=== PATIENT | male | born 1965 | race African-American/Black ===

== ENCOUNTER 2017-04-10 06:30 | Day surgery (SDC) | payer BC ==
[2017-04-06 14:06] VITALS: BMI 24.0
[2017-04-10] MEDS ORDERED: EPINEPHrine 1:1,000 1 MG/1 ML - 30ML VIAL (INJECTION) ONE (07:54)
[2017-04-10] MEDS ORDERED: BUPIVACAINE HCL/PF 2.5 MG/ML - 30 ML VIAL IJ ONE (07:54)
[2017-04-10] MEDS ORDERED: KETOROLAC TROMETHAMINE 30 MG/1 ML VIAL ONE (07:57)
[2017-04-10] MEDS ORDERED: DEXAMETHASONE SOD PHOSPHATE 4 MG/1 ML VIAL ONE (07:57)
[2017-04-10] MEDS ORDERED: LIDOCAINE HCL/PF 2% SDV 5ML VIAL ONE (07:57)
[2017-04-10] MEDS ORDERED: ONDANSETRON 4 MG/2 ML VIAL ONE (07:57)
[2017-04-10] MEDS ORDERED: PROPOFOL 20 ML ONE (07:57)
[2017-04-10] MEDS ORDERED: SODIUM CHLORIDE 0.9% P/F 10 ML VIAL IJ ONE (07:58)
[2017-04-10] MEDS ORDERED: ceFAZolin SODIUM 1 GM VIAL ONE (07:58)
[2017-04-10] MEDS ORDERED: oxyCODONE HCL 5 MG TABLET PO PRN (08:37)
[2017-04-10] MEDS ORDERED: ONDANSETRON 4 MG/2 ML VIAL IVPUSH PRN (08:37)
[2017-04-10] MEDS ORDERED: LACTATED RINGERS SOLUTION 1,000 ML IV SCH (08:45)
[2017-04-10] MEDS ORDERED: MIDAZOLAM HCL 2 MG/2 ML SINGLE DOSE VIAL ONE (08:48)
[2017-04-10] MEDS ORDERED: ePHEDrine SULFATE 50 MG/1 ML AMPULE ONE (09:08)
[2017-04-10 11:54] VITALS: TEMP 97.5
[2017-04-10 11:56] VITALS: BP 114/83; PULSE 64
--- NOTE | 2017-04-12 21:09 | OP ---
DATE OF OPERATION: 04/10/2017 SURGEON: Khalif Dowling MD STACK MATCHER: KIP Bird PREOPERATIVE DIAGNOSES: 1. Right knee medial and lateral meniscal tear. 2. Right knee cartilage injury. 3. Right knee synovitis. POSTOPERATIVE DIAGNOSES: 1. Right knee medial and lateral meniscal tear. 2. Right knee cartilage injury. 3. Right knee synovitis. POCEDURE: 1. Right knee arthroscopy with partial meniscectomy, medial and lateral meniscus. 2. Right knee arthroscopy with chondroplasty and abrasion-plasty. 3. Right knee arthroscopy with synovectomy, major. CPT CODES: 93332, [id number], 33631. FINDINGS: 1. Medial meniscus posterior horn tear, minor. 2. Lateral meniscus anterior horn tear and body anterior one-third. 3. Synovitis, patellofemoral, medial and lateral notch area. 4. Central grade 3 cartilage injury, medial femoral condyle, and grade 2 to 3 changes, medial tibial plateau. 5. ACL and PCL intact. 6. Central grade 4 cartilage injury, lateral femoral condyle posterior femoral condyle. 7. Central grade 2 to 3 cartilage injury, patellofemoral trochlea, and anterior grade 4 changes, patellofemoral trochlea. 8. Large ganglion cyst, posterior portion. PROCEDURE: Informed consent was obtained. The patient came to the operating room, where the lower extremity was prepped and draped in a sterile fashion. A tourniquet was placed on the upper thigh, but not inflated. Using standard arthroscopic technique, a lateral incision and portal was made to allow for introduction of the camera into the suprapatellar bursa. This was then taken to the medial joint line, where under direct visualization, a medial incision and portal was made. Excessive synovium noted in the medial, lateral and patellofemoral and notch area was removed by an upbiter, shaver and Bovie cautery. This was found to bring in inflammatory tissue into the joint surface, a source of pain and dysfunction. Probing of the medial and lateral meniscus found tears, as described in the findings. These were removed with the upbiter and shaver and taken back to a stable rim. Grade 2 to 3 degenerative changes were treated with a chondroplasty, removing all flaking surfaces with low-setting Bovie along the periphery to prevent further flaking. Grade 4 changes, as noted, were treated with an abrasoplasty, creating a bleeding surface at the bone/cartilage interface. Aggressive debridement with shaver/ann marie created bleeding surface. Micro fracture also done when indicated in findings All areas of the knee were once again reexamined. The knee was then drained and a single suture was placed in all portals. A sterile dressing was placed and the patient was transferred to the recovery room without complication. ADDENDUM: The area of the ganglion cyst was identified. After debridement and removal of the damaged cartilage and meniscal tears, an incision was made approximately 4 cm in length in the central portion of the posterior ganglion. This was taken down, where a 22 needle was placed into the ganglion cyst to confirm no arterial connection. An incision was made into the ganglion cyst and a hemostat was used to spread open up all septa of the ganglion cyst. This was then irrigated with copious amounts of irrigation and debrided soft tissue. The central thickened fluid of the ganglion cyst was completely debrided. This was then closed with 2-0 Vicryl and 3-0 nylon. Sterile dressing was placed. Patient transferred to recovery without complication. KHALIF DOWLING M.D. [id number]
--- NOTE | 2017-04-14 15:01 | PATH ---
Surgical Pathology Report Patient Name: SMITHA PATRICIO [facility]. Rec. #: [id number] /Age/Gender: 1965 (Age: 51) / M Account: [id number] Location: [facility] Taken: 04/10/2017 Received: 04/10/2017 Reported: 04/14/2017 Physicians: Khalif Uribe M.D. Specimen(s) Received RIGHT KNEE SHAVINGS Clinical History Derangement of right knee, Moore's cyst Final Diagnosis KNEE, RIGHT, ARTHROSCOPIC SHAVINGS: FRAGMENTS OF CARTILAGE, FIBROCOLLAGENOUS TISSUE AND SCANT BONE. Electronically Signed Gabby Zaragoza M.D. Gross Description Received in formalin, labeled "right knee shavings," is a 4.5 x 3.5 x 0.3 cm. aggregate of zuleta-yellow soft tissue fragments. A metals sales representative portion is submitted in one cassette. /04/13/201704/13/2017
== END 2017-04-10 11:45 | disposition home or self-care (01) ==
LOC: FASU 06:30
PROVIDERS: ATTEND Orthopaedic Surgery
PROC: 0SBC4ZZ Excision of Right Knee Joint, Percutaneous Endoscopic Approach (ICD-10-PCS; 2017-04-10)
PROC: 0SBC0ZZ Excision of Right Knee Joint, Open Approach (ICD-10-PCS; 2017-04-10)
PROC: 0SBC4ZZ Excision of Right Knee Joint, Percutaneous Endoscopic Approach (ICD-10-PCS; principal; 2017-04-10 08:55)
PROC: 0SBC4ZZ Excision of Right Knee Joint, Percutaneous Endoscopic Approach (ICD-10-PCS; 2017-04-10 08:55)
DX: S83.241A Other tear of medial meniscus, current injury, right knee, initial encounter (principal); S83.281A Other tear of lateral meniscus, current injury, right knee, initial encounter; S83.8X1A Sprain of other specified parts of right knee, initial encounter; M65.861 Other synovitis and tenosynovitis, right lower leg; M67.461 Ganglion, right knee; X58.XXXA Exposure to other specified factors, initial encounter; Y93.89 Activity, other specified; Y92.89 Other specified places as the place of occurrence of the external cause
CPT/HCPCS: 88304-TC; 94760